=== PATIENT | female | born 2000 | race Caucasian/White ===

== ENCOUNTER 2019-03-25 00:10 | Observation (INO) | payer SELFPAY ==
[2019-03-25 00:53] LABS: BHCG - Serum Negative (NEGATIVE); Pregs Control Background? CLEAR/WHITE (CLR/WHITE); Pregs Control Bar Appear? YES (CONTROL BAR)
[2019-03-25 01:04] LABS: Anion Gap 16 mmol/L (10-20); BUN (Urea Nitrogen) 13 mg/dL (7.0-18.7); Calc. Creatinine Clearance 0 mL/min (70-130); Carbon Dioxide 22 mmol/L (22-29); Chloride 102 mmol/L (98-107); Estimated GFR-MDRD 61; Glucose 342 mg/dL (70-105); Potassium 3.7 mmol/L (3.5-5.1); Sodium 136 mmol/L (136-145)
[2019-03-25] MEDS ORDERED: Insulin Regular 300 UNITS/3 ML VIAL ONE (01:50)
[2019-03-25 03:14] VITALS: BMI 18.6
[2019-03-25] MEDS ORDERED: Ondansetron PF 4 MG/2 ML Vial IVP PRN (03:32)
[2019-03-25] MEDS ORDERED: Acetaminophen 325 MG TAB PO PRN ×2 (03:32→04:57)
[2019-03-25] MEDS ORDERED: Sodium Chloride 0.9% 1,000 ML IV SCH (03:32)
[2019-03-25] MEDS ORDERED: Ondansetron ODT 4 MG TAB SL PRN (03:32)
[2019-03-25] MEDS ORDERED: Guaifenesin DM 100-10/5 ML UDCUP PO PRN (04:57)
[2019-03-25] MEDS ORDERED: Senokot S 8.6-50 MG TAB PO PRN (04:57)
[2019-03-25] MEDS ORDERED: Dextrose 50% Abboject 50 ML SYRINGE SLOW IVP PRN (04:57)
[2019-03-25] MEDS ORDERED: Dextrose 5% in Water 1,000 ML IV PRN (04:57)
[2019-03-25] MEDS ORDERED: Albuterol Sulfate 2.5 mg/3 ml Neb NEB PRN (05:04)
--- NOTE | 2019-03-25 05:30 | HP ---
REASON FOR ADMISSION: New onset diabetes mellitus type 1. HISTORY OF PRESENTING ILLNESS: The patient apparently went to [facility] after she had electrical contact/injury for 10 seconds with her chewed up computer cord. She had a pet rabbit which had chewed the computer wire earlier. The patient accidentally stepped on it and felt electrical current go from her right upper leg to her chest. She felt like her chest became tight and could not breathe. She got very anxious and went to [facility] ER from where she was transferred here after initial workup revealed a fingerstick glucose of 464. She was given 2 L of normal saline and 10 units of Humulin IV there. The patient has no prior history of diabetes. She has increased urination and has been feeling thirsty. This has been ongoing for some time now. No complaints of abdominal pain, back pain. No recent history of any motor vehicle accident or abdominal injury. No history of fever. The patient is completely vaccinated including MMR. PAST MEDICAL AND SURGICAL HISTORY: History of asthma/allergies. No prior surgical history. CURRENT MEDICATIONS: 1. Albuterol inhaler p.r.n. 2. Oral contraceptive pills. ALLERGIES: NO KNOWN DRUG ALLERGIES. PERSONAL HISTORY: Does not abuse alcohol or drugs. No history of smoking. FAMILY HISTORY: Both parents are healthy. Has a younger brother who is 15 years old and is healthy. 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 CODE STATUS: Full. REVIEW OF SYSTEMS: CONSTITUTIONAL: Negative for weight loss or gain, ability to conduct usual activities. SKIN: Negative for rash, itching. EYES: Negative for double vision, pain. ENT/MOUTH: Negative for nose bleeding, neck stiffness, pain, tenderness. CARDIOVASCULAR: Negative for palpitations, dyspnea on exertion, orthopnea. RESPIRATORY: Negative for shortness of breath, wheezing, cough, hemoptysis, fever or night sweats. GASTROINTESTINAL: Negative for poor appetite, abdominal pain, heartburn, nausea , vomiting, constipation, or diarrhea. GENITOURINARY: Negative for urgency, frequency, dysuria, nocturia. MUSCULOSKELETAL: Negative for pain, swelling. NEUROLOGIC/PSYCHIATRIC: Negative for anxiety, depression. ALLERGY/IMMUNOLOGIC: Negative for skin rash, bleeding tendency. PHYSICAL EXAMINATION: GENERAL: The patient is a 18-year-old female who is currently not in any acute distress. VITAL SIGNS: Blood pressure 126/80, pulse 110 per minute, respiratory rate 16 per minute, temperature 98.5 degrees Fahrenheit, saturating 97% on room air. NECK: Supple. No elevated JVD. HEENT: Eyes, extraocular muscles intact. Pupils reacting to light. Oral cavity, mucous membranes are dry. No exudates or congestion. CARDIOVASCULAR: S1 and S2 heard. Tachycardic. No murmur. RESPIRATORY: Air entry 1+ bilateral. No rales or rhonchi. ABDOMEN: Soft. Bowel sounds heard. No tenderness, rigidity, or guarding. EXTREMITIES: No peripheral edema or calf tenderness. VASCULAR: Peripheral pulses 1+ bilateral. No ischemic ulcerations or gangrene. CENTRAL NERVOUS SYSTEM: No gross focal deficits noted. The patient is alert, awake, oriented well. PSYCHIATRIC: The patient's mood is euthymic. No hallucinations or delusions. LABORATORY DATA: BUN 13, creatinine 1.1, serum glucose was 342 here. The EKG done at [facility] showed sinus tach at 125 beats per minute. She had a chest x-ray done there, which did not reveal any acute abnormality per official report. Beta-hydroxybutyrate level was 0.87. Serum test is negative. One set of cardiac enzyme is negative. CLINICAL IMPRESSION AND PLAN: We will obtain a C-peptide and insulin level stat. She has received a total of 10 units of Humulin and 5 units of Novolin all of which are regular insulins in the ER. The patient likely is a type 1 diabetic. HbA1c , C-peptide and insulin level stat will be obtained. She will be on normal saline at 100 mL/hour. We will closely monitor electrolyte levels, especially potassium. She will be on Lantus 15 units subcu twice daily and moderate Humalog sliding scale. Diabetic teaching will be done along with hypoglycemia instructions as well prior to discharge. No family history of diabetes as such that she knows. The patient has stable asthma for which she has not used any steroid inhalers or steroids in the recent past. Job ID: [id number] [facility]
[2019-03-25 05:32] LABS: #Eosinphils 0.2 thou/uL (0.0-0.7); #Monocytes 0.5 thou/uL (0.11-0.59); #Neutrophils 2.7 thou/uL (1.40-6.50); %Basophils 0.7 % (0.0-1.0); %Eosinophils 2.9 % (0.0-10.0); %Lymphocytes 46.4 % (28.0-48.0); %Monocytes 7.8 % (0.0-4.0); %Neutrophils 42.3 % (31.0-61.0); Hemoglobin 11.2 g/dL (12.0-16.0); Mean Corpuscular Hemoglobin 30.6 pg (25.0-35.0); Mean Corpuscular Volume 87.4 fL (78.0-98.0); Platelet Count 198 thou/uL (130-400); RBC Distribution Width 10.5 % (11.5-14.5); Red Blood Cell (RBC) Count 3.68 mill/uL (4.00-5.20); White Blood Cell (WBC) Count 6.4 thou/uL (4.8-10.8)
[2019-03-25 05:33] LABS: Hemoglobin A1c 13.2 % (4.0-6.0)
[2019-03-25] MEDS: Sodium Chloride 0.9% 1,000 ML IV SCH ×3 (06:30→22:34)
[2019-03-25] MEDS: HumaLOG 300 UNITS/3 ML VIAL SC PRN ×3 (07:20→17:31)
[2019-03-25] MEDS ORDERED: E ESTRADIOL E ESTRAD PO SCH (09:00)
[2019-03-25] MEDS ORDERED: NORGEST PO SCH (09:00)
[2019-03-25] MEDS: Insulin Glargine 15 UNITS in Pre-Filled Syringe 1 EACH SC SCH ×2 (09:28→22:14)
[2019-03-25] MEDS: Famotidine 20 MG TAB PO SCH ×2 (09:28→21:54)
--- NOTE | 2019-03-25 16:54 | PDOC.HOSPP ---
- Subjective Encounter Date: 03/25/19 Encounter Time: 09:50 Subjective: 18 y/o female with no prior medical history admitted with marked hyperglycemia found incidentally when she presented to ER for accidental electric contact/ injury. Feeling better. No nausea and vomiting. - Objective Vital Signs & Weight: Vital Signs (12 hours) Temp Pulse Resp BP Pulse Ox 03/25/19 15:43 98.4 F 89 16 109/69 97 03/25/19 12:00 98.5 F 89 14 114/71 96 03/25/19 08:24 97.8 F 89 18 102/57 L 98 Weight Admit Weight 98 lb 8 oz Weight 98 lb 8 oz I&O: 03/24/19 03/25/19 03/26/19 06:59 06:59 06:59 Intake Total 300 1420 Balance 300 1420 Result Diagrams: 03/25/19 05:17 03/25/19 00:29 Additional Labs: Accuchecks 03/25/19 03/25/19 03/25/19 15:47 11:28 05:24 POC Glucose 187 H 188 H 218 H 03/25/19 01:59 POC Glucose 378 H Hospitalist ROS - Medication Medications: Active Medications Generic Name Dose Route Start Last Admin Trade Name Freq PRN Reason Stop Dose Admin Famotidine 20 mg 03/25/19 09:00 03/25/19 09:28 Pepcid PO 20 mg BID NORMA Administration Insulin Glargine 15 units/ 0.15 mls @ 0 mls/hr 03/25/19 09:00 03/25/19 09:28 Miscellaneous Medication SC 0.15 mls BID NORMA Administration Sodium Chloride 1,000 mls @ 100 mls/hr 03/25/19 05:00 03/25/19 14:41 Normal Saline 0.9% IV 03/26/19 10:59 1,000 mls .Q10H NORMA Administration Insulin Human Lispro 0 units 03/25/19 04:57 03/25/19 13:30 Humalog SC 2 unit .MODERATE SLIDING SC PRN Administration Moderate Correctional Scale - Exam General Appearance: NAD, awake alert Eye: PERRL ENT: normocephalic atraumatic Neck: supple, symmetric Heart: RRR, no murmur Respiratory: CTAB Gastrointestinal: soft, non-tender, non-distended, normal bowel sounds Extremities: no cyanosis, no clubbing, no edema Neurological: CN's grossly intact, normal sensation to touch, no weakness, no focal deficits Psychiatric: normal affect, A&O x 3 Hosp A/P (1) Newly diagnosed diabetes Code(s): E11.9 - TYPE 2 DIABETES MELLITUS WITHOUT COMPLICATIONS Status: Acute (2) Electric injury Code(s): W86.8XXA - EXPOSURE TO OTHER ELECTRIC CURRENT, INITIAL ENCOUNTER Status: Acute - Plan Continue insulin therapy. Consult case mgt to help with discharge planning Re: insulin and glucometer
[2019-03-26 06:09] LABS: #Eosinphils 0.2 thou/uL (0.0-0.7); #Lymphocytes 2.9 thou/uL (1.20-3.40); #Monocytes 0.4 thou/uL (0.11-0.59); #Neutrophils 2.7 thou/uL (1.40-6.50); %Basophils 0.4 % (0.0-1.0); %Eosinophils 3.4 % (0.0-10.0); %Lymphocytes 46.4 % (28.0-48.0); %Neutrophils 42.8 % (31.0-61.0); Hemoglobin 11.1 g/dL (12.0-16.0); Mean Corpuscular HGB CONC 35.3 g/dL (32.0-36.0); Mean Corpuscular Hemoglobin 31.7 pg (25.0-35.0); Mean Corpuscular Volume 89.7 fL (78.0-98.0); Mean Platelet Volume 8.6 fL (7.4-10.4); Platelet Count 186 thou/uL (130-400); RBC Distribution Width 10.7 % (11.5-14.5); Red Blood Cell (RBC) Count 3.52 mill/uL (4.00-5.20); White Blood Cell (WBC) Count 6.2 thou/uL (4.8-10.8)
[2019-03-26 06:29] LABS: ALT (SGPT) 10 U/L (8-55); AST (SGOT) 11 U/L (5-34); Albumin 3.3 g/dL (3.5-5.0); Alkaline Phosphatase 34 U/L (40-150); Anion Gap 8 mmol/L (10-20); BUN (Urea Nitrogen) 7 mg/dL (7.0-18.7); Bilirubin, Total 0.2 mg/dL (0.2-1.2); Calc. Creatinine Clearance 89 mL/min (70-130); Calcium 8.3 mg/dL (7.8-10.44); Carbon Dioxide 22 mmol/L (22-29); Chloride 109 mmol/L (98-107); Estimated GFR-MDRD Greater than 90; Globulin 2.1 g/dL (2.4-3.5); Glucose 182 mg/dL (70-105); Potassium 3.6 mmol/L (3.5-5.1); Protein, Total 5.4 g/dL (6.0-8.3); Sodium 135 mmol/L (136-145)
[2019-03-26] MEDS: HumaLOG 300 UNITS/3 ML VIAL SC PRN (06:37)
[2019-03-26 07:42] VITALS: BP 104/64; TEMP 97.8
[2019-03-26] MEDS: Sodium Chloride 0.9% 1,000 ML IV SCH (08:50)
[2019-03-26] MEDS: Insulin Glargine 15 UNITS in Pre-Filled Syringe 1 EACH SC SCH (08:51)
[2019-03-26] MEDS: Famotidine 20 MG TAB PO SCH (08:52)
[2019-03-26] MEDS ORDERED: metFORMIN 500 MG TAB PO SCH (09:00)
--- NOTE | 2019-03-26 10:02 | DIS ---
DATE OF ADMISSION: 03/25/2019 DATE OF DISCHARGE: 03/26/2019 PRIMARY CARE PHYSICIAN: None. DISCHARGE DIAGNOSES: 1. Newly-diagnosed diabetes mellitus. 2. Hyperglycemia. 3. Accidental electric contacts and injury. 4. Asthma with no acute exacerbation. 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 2. [facility]. HOSPITAL COURSE: A 18-year-old female with no prior medical history other than asthma, admitted with marked hyperglycemia, found incidentally when she presented to the ER for accidental electric contacts and injury. There was no nausea, vomiting, shortness of breath, or cough. Impression of type 1 diabetes mellitus was made, and the patient was started on IV fluid as well as insulin therapy. Further evaluation with hemoglobin A1c came back markedly elevated at 13.2. The patient was provided diabetic education as well as dietary counseling and education. Because she does not have insurance, [facility] was consulted as well as Case Management to help the patient with procuring medications needed. Coupon was provided to the patient to reduce the cost of Lantus. She remained stable and was subsequently discharged. PHYSICAL EXAMINATION: VITAL SIGNS: Temperature 97.8, pulse 61, respiratory rate 18, SpO2 of 99% on room air, and blood pressure is 104/64. GENERAL: Healthy-looking young lady, in no distress. Afebrile. Anicteric. Acyanotic. HEENT: Normocephalic, atraumatic. Pupils are reacting to light. Oral mucosa is moist. CARDIOVASCULAR: Regular rhythm and rate with normal heart sounds 1 and 2. RESPIRATORY: Good air entry bilaterally with no obvious crackle, rhonchi, or use of accessory muscles. GI: Full, soft, nontender, nondistended with normal bowel sounds. EXTREMITIES: Grossly normal looking, atraumatic with no edema or erythema. Distal pulses are palpable. 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 Cranial nerves 2 through 12 are grossly intact. DISCHARGE CONDITION: Improved. DISCHARGE DISPOSITION: Home. DISCHARGE FOLLOWUP: The patient was advised to follow up at the [facility] within 1 week of discharge. DISCHARGE MEDICATIONS: 1. Humulin R 0 to 10 units subcutaneously t.i.d. with meals according to provided sliding scale. 2. Lantus 24 units subcutaneously daily in the morning. 3. Metformin 500 mg p.o. b.i.d. 4. Acetaminophen 650 mg q.6 p.r.n. for pain. Job ID: [id number]
== END 2019-03-26 11:09 | disposition home or self-care (01) ==
LOC: ERS 00:10 → SURG B 01:39
PROVIDERS: ADMIT Internal Medicine; ATTEND Internal Medicine
DX: E10.65 Type 1 diabetes mellitus with hyperglycemia (principal); J45.909 Unspecified asthma, uncomplicated; W86.8XXA Exposure to other electric current, initial encounter; Z79.899 Other long term (current) drug therapy
CPT/HCPCS: 36415; 36416; 80048; 80053; 82010; 83036; 83525; 83605; 84484; 84681; 84703; 85025; 93005; 96360; 96361; G0378; J1815